=== PATIENT | female | born 1995 | race American Indian/Alaskan Native ===

== ENCOUNTER 2017-05-05 09:47 | Emergency (ER) | payer SELFPAY ==
--- NOTE | 2017-05-05 10:02 | Emergency Department Report ---
Chief Complaint: Abdominal Pain Stated Complaint: UNK WKS PREG/ABD PAIN Time Seen by Provider: 05/05/17 09:59 - HPI History of Present Illness: PT states she had a positive home test 3 weeks ago. pt reports lower abd pain since yesterday - ROS Review of Systems: + abd pain - bleeding - Exam Vital Signs: Vital Signs 05/05/17 09:55 Temperature 99.1 F Pulse Rate 81 Respiratory 20 Rate Blood Pressure 136/76 O2 Sat by Pulse 100 Oximetry MSE screening note: Focused history and physical exam performed. Due to findings the following was ordered: labs, us ED Disposition for MSE Condition: Stable Instructions: Abdominal Pain (ED)
[2017-05-05 10:26] LABS: Basophils % (Auto) 0.5 % (0.0-1.8); Eosinophils % (Auto) 5.8 % (0.0-4.3); Hematocrit 39.4 % (30.3-42.9); Hemoglobin 12.7 gm/dl (10.1-14.3); Mean Corpuscular HGB Conc 32 % (30-34); Mean Corpuscular Hemoglobin 29 pg (28-32); Mean Corpuscular Volume 91 fl (79-97); Platelet Count 246 K/mm3 (140-440); Red Blood Count 4.35 M/mm3 (3.65-5.03); Red Cell Distribution Width 16.7 % (13.2-15.2)
[2017-05-05 10:39] LABS: Alanine Aminotransferase 24 units/L (7-56); Albumin/Globulin Ratio 1.2 %; Alkaline Phosphatase 41 units/L (35-129); Anion Gap 19 mmol/L; Blood Urea Nitrogen 9 mg/dL (7-17); Calcium 8.7 mg/dL (8.4-10.2); Carbon Dioxide 21 mmol/L (22-30); Chloride 101.9 mmol/L (98-107); Glucose 109 mg/dL (65-100); Potassium 3.6 mmol/L (3.6-5.0); Sodium 138 mmol/L (137-145); Total Protein 7.4 g/dL (6.3-8.2)
[2017-05-05 10:43] LABS: Bacteria,Urine 1+ /HPF (Negative); Bilirubin,Urine NEG (Negative); Blood,Urine SM (Negative); Ketones,Urine NEG (Negative); Leukocyte Esterase,Urine TR (Negative); Mucus,Urine 3+ /HPF; Nitrite,Urine NEG (Negative); Protein,Urine <15 mg/dL mg/dL (Negative); Urobilinogen,Urine < 2.0 mg/dL (<2.0)
--- NOTE | 2017-05-05 11:26 | Ultrasound Report ---
ULTRASOUND OB LESS THAN 14 WEEKS FETUS ULTRASOUND OB TRANSVAGINAL HISTORY: Abdominal and pelvic pain. Beta-hCG level is 696.2. FINDINGS: Transabdominal and transvaginal imaging was performed. The uterus measures 12 x 7 x 8 cm. No uterine mass is identified. The endometrial stripe measures 16 mm. There appears to be a small amount of endometrial fluid. No intrauterine gestational sac or heart tones could be demonstrated. The cervix is unremarkable. The right ovary measures 1.9 x 1.3 x 1.9 cm. No focal abnormality. The left ovary measures 2.2 x 2.1 x 2.5 cm. The left ovary contains a 2.1 cm cystic lesion which probably represents a corpus luteum cyst. IMPRESSION: No intrauterine is visualized at this time. See above. Probable corpus luteum cyst in the left ovary. Please note that an ectopic is not entirely excluded at this time. Followup is recommended.
[2017-05-05 13:41] VITALS: BP 122/70
--- NOTE | 2017-05-05 15:28 | Emergency Department Report ---
ED Abdominal Pain HPI - General Chief Complaint: Abdominal Pain Stated Complaint: UNK WKS PREG/ABD PAIN Time Seen by Provider: 05/05/17 09:59 Source: patient Mode of arrival: Ambulatory Limitations: No Limitations - History of Present Illness Initial Comments: 22-year-old female here with abdominal cramping. Patient's last miss her period was in early March. She presents today with some cramping but no vaginal bleeding. No fevers chills nausea vomiting. She otherwise appears well. MD Complaint: abdominal pain -: Gradual Location: suprapubic Radiation: none Migration to: no migration Severity: moderate Severity scale (0 -10): 0 Quality: fullness Consistency: intermittent Improves With: nothing Worsens With: nothing Associated Symptoms: denies: nausea, vomiting, chills, constipation, dysuria - Related Data LMP (females 10-50): Home Medications Medication Instructions Recorded Confirmed Last Taken No Known Home Medications [No 01/31/16 05/05/17 Unknown Reported Home Medications] Allergies Allergy/AdvReac Type Severity Reaction Status Date / Time No Known Allergies Allergy Verified 02/11/16 16:23 ED Review of Systems ROS: Stated complaint: UNK WKS PREG/ABD PAIN Other details as noted in HPI Comment: All other systems reviewed and negative Constitutional: denies: chills, fever Eyes: denies: eye pain, eye discharge, vision change ENT: denies: ear pain, throat pain Respiratory: denies: cough, shortness of breath, wheezing Cardiovascular: denies: chest pain, palpitations Endocrine: no symptoms reported Gastrointestinal: denies: abdominal pain, nausea, diarrhea Genitourinary: denies: urgency, dysuria, discharge Musculoskeletal: denies: back pain, joint swelling, arthralgia Skin: denies: rash, lesions Neurological: denies: headache, weakness, paresthesias Psychiatric: denies: anxiety, depression Hematological/Lymphatic: denies: easy bleeding, easy bruising ED Past Medical Hx - Past Medical History Previous Medical History?: Yes Hx Hypertension: No Hx Diabetes: No Hx Deep Vein Thrombosis: No Hx Renal Disease: No Hx Sickle Cell Disease: No Hx Seizures: No Hx Asthma: Yes (last attack 10yrs ago) Hx HIV: No Additional medical history: Vaginal dleivery x 3 - Surgical History Past Surgical History?: No - Family History Family history: no significant - Social History Smoking Status: Never Smoker - Medications Home Medications: Home Medications Medication Instructions Recorded Confirmed Last Taken Type No Known Home Medications [No 01/31/16 05/05/17 Unknown History Reported Home Medications] ED Physical Exam - General Limitations: No Limitations General appearance: alert, in no apparent distress, obese - Head Head exam: Present: atraumatic, normocephalic - Eye Eye exam: Present: normal appearance - ENT ENT exam: Present: mucous membranes moist - Neck Neck exam: Present: normal inspection - Respiratory Respiratory exam: Present: normal lung sounds bilaterally. Absent: respiratory distress, wheezes, rales - Cardiovascular Cardiovascular Exam: Present: regular rate, normal rhythm, normal heart sounds. Absent: systolic murmur, diastolic murmur, rubs, gallop - GI/Abdominal GI/Abdominal exam: Present: soft, normal bowel sounds - Extremities Exam Extremities exam: Present: normal inspection - Back Exam Back exam: Present: normal inspection - Neurological Exam Neurological exam: Present: alert, oriented X3 - Psychiatric Psychiatric exam: Present: normal affect, normal mood - Skin Skin exam: Present: warm, dry, intact, normal color. Absent: rash ED Course Vital Signs 05/05/17 05/05/17 09:55 13:40 Temperature 99.1 F 98.7 F Pulse Rate 81 78 Respiratory 20 18 Rate Blood Pressure 136/76 Blood Pressure 122/70 [Right] O2 Sat by Pulse 100 98 Oximetry ED Medical Decision Making - Lab Data Result diagrams: 05/05/17 10:02 05/05/17 10:02 Laboratory Results - last 24 hr 05/05/17 05/05/17 05/05/17 10:02 10:02 10:02 WBC 6.0 RBC 4.35 Hgb 12.7 Hct 39.4 MCV 91 MCH 29 MCHC 32 RDW 16.7 H Plt Count 246 Lymph % (Auto) 33.2 [place] % (Auto) 7.7 H Eos % (Auto) 5.8 H Baso % (Auto) 0.5 Lymph # 2.0 [place] # 0.5 Eos # 0.3 Baso # 0.0 Seg Neutrophils % 52.8 Seg Neutrophils # 3.2 Sodium 138 Potassium 3.6 Chloride 101.9 Carbon Dioxide 21 L Anion Gap 19 BUN 9 Creatinine 0.5 L Estimated GFR > 60 BUN/Creatinine Ratio 18.00 Glucose 109 H Calcium 8.7 Total Bilirubin 0.50 AST 23 ALT 24 Alkaline Phosphatase 41 Total Protein 7.4 Albumin 4.0 Albumin/Globulin Ratio 1.2 HCG, Quant 696.2 H Urine Color Urine Turbidity Urine pH Ur Specific [place] Urine Protein Urine Glucose (UA) Urine Ketones Urine Blood Urine Nitrite Urine Bilirubin Urine Urobilinogen Ur Leukocyte Esterase Urine WBC (Auto) Urine RBC (Auto) U Epithel Cells (Auto) Urine Bacteria (Auto) Urine Mucus Blood Type 05/05/17 05/05/17 10:02 10:14 WBC RBC Hgb Hct MCV MCH MCHC RDW Plt Count Lymph % (Auto) [place] % (Auto) Eos % (Auto) Baso % (Auto) Lymph # [place] # Eos # Baso # Seg Neutrophils % Seg Neutrophils # Sodium Potassium Chloride Carbon Dioxide Anion Gap BUN Creatinine Estimated GFR BUN/Creatinine Ratio Glucose Calcium Total Bilirubin AST ALT Alkaline Phosphatase Total Protein Albumin Albumin/Globulin Ratio HCG, Quant Urine Color Yellow Urine Turbidity Clear Urine pH 5.0 Ur Specific [place] 1.029 Urine Protein <15 mg/dl Urine Glucose (UA) Neg Urine Ketones Neg Urine Blood Sm Urine Nitrite Neg Urine Bilirubin Neg Urine Urobilinogen < 2.0 Ur Leukocyte Esterase Tr Urine WBC (Auto) 2.0 Urine RBC (Auto) 4.0 U Epithel Cells (Auto) 5.0 Urine Bacteria (Auto) 1+ Urine Mucus 3+ Blood Type AB POSITIVE - Medical Decision Making 22-year-old female here with abdominal cramping. She is . She's never had an ectopic . Her beta hCG is 696. Her ultrasound does not show an intrauterine . She will need follow-up for repeat ultrasound or repeat beta-hCG in 48 hours. I discussed this with the patient and she is comfortable with plan she is to return if she has worsening pain or sudden onset of vaginal bleeding. Portions of this chart were dictated with dictation software. There may be dictation errors contained within this note. Critical care attestation.: If time is entered above; I have spent that time in minutes in the direct care of this critically ill patient, excluding procedure time. ED Disposition Clinical Impression: Abdominal pain affecting Disposition: DC-01 TO HOME OR SELFCARE Is pt being admited?: No Condition: Stable Instructions: Abdominal Pain (ED), (ED), Ectopic (ED) Additional Instructions: Please return to the emergency department for repeat ultrasound and repeat beta hCG in 48 hours. If you would prefern he may follow directly with a public relations sales marketing. Referrals: PRIMARY CARE, [Primary Care Provider] - 3-5 Days DAGO WRIGHT MD [Staff Physician] - [facility] (Follow up in 48 hours)
== END 2017-05-05 15:35 | disposition home or self-care (01) ==
LOC: ED 09:47
DX: O26.891 Other specified pregnancy related conditions, first trimester (principal); R10.9 Unspecified abdominal pain; Z3A.01 Less than 8 weeks gestation of pregnancy; J45.909 Unspecified asthma, uncomplicated
CPT/HCPCS: 36415; 76801; 76817; 80053; 81001; 84702; 85025; 86900; 86901

== ENCOUNTER 2017-06-16 17:04 | Emergency (ER) | payer SELFPAY ==
[2017-06-16 18:20] LABS: Basophils % (Auto) 0.2 % (0.0-1.8); Eosinophils % (Auto) 3.4 % (0.0-4.3); Hematocrit 37.4 % (30.3-42.9); Hemoglobin 12.6 gm/dl (10.1-14.3); Mean Corpuscular HGB Conc 34 % (30-34); Mean Corpuscular Hemoglobin 30 pg (28-32); Mean Corpuscular Volume 90 fl (79-97); Platelet Count 240 K/mm3 (140-440); Red Blood Count 4.18 M/mm3 (3.65-5.03); Red Cell Distribution Width 15.6 % (13.2-15.2)
[2017-06-16 18:55] LABS: Bilirubin,Urine NEG (Negative); Blood,Urine NEG (Negative); Ketones,Urine NEG (Negative); Leukocyte Esterase,Urine NEG (Negative); Mucus,Urine FEW /HPF; Nitrite,Urine NEG (Negative); Protein,Urine <15 mg/dL mg/dL (Negative); Urobilinogen,Urine < 2.0 mg/dL (<2.0); WBC,Urine < 1.0 /HPF (0.0-6.0)
[2017-06-16 18:58] LABS: Alanine Aminotransferase 15 units/L (7-56); Albumin/Globulin Ratio 1.2 %; Alkaline Phosphatase 35 units/L (35-129); Anion Gap 18 mmol/L; BUN/Creatinine Ratio 18; Blood Urea Nitrogen 9 mg/dL (7-17); Calcium 9.3 mg/dL (8.4-10.2); Carbon Dioxide 20 mmol/L (22-30); Chloride 100.2 mmol/L (98-107); Glucose 108 mg/dL (65-100); Lipase 23 units/L (13-60); Potassium 3.6 mmol/L (3.6-5.0); Sodium 135 mmol/L (137-145); Total Protein 7.3 g/dL (6.3-8.2)
[2017-06-16] MEDS ORDERED: TYLENOL PO ONE (20:26)
[2017-06-16] MEDS ORDERED: TYLENOL ONE (20:27)
--- NOTE | 2017-06-16 21:31 | Ultrasound Report ---
FINAL REPORT PROCEDURE: US OB \T\lt; = 14 WEEKS FETUS TECHNIQUE: Real-time transabdominal sonography of the uterus, placenta, amniotic fluid, adnexa, and fetus was performed with image documentation. Measurements were obtained to determine age/size. M-mode Doppler was used to document heartbeat. CPT 93063 HISTORY: ABD CRAMPING COMPARISON: No prior studies are available for comparison. FINDINGS: CRL: 36 mm, which corresponds to a gestational age of: 10 weeks, 3 days. Yolk Sac: Normal. Embryonic Cardiac Activity: 166 beats per minute Gestational Sac: 2 small crescentic hypoechoic areas are seen adjacent to the gestational sac, likely related to subchorionic hemorrhage. One is seen inferiorly which measures 1.1 x 1.7 x 2.2 centimeters. One is seen posteriorly which measures 1.7 x 0.5 x 1.0 centimeters Amniotic fluid: Normal. Cervix: Not well-visualized Right Ovary: Normal. Left Ovary: 2.3 centimeter complex cyst is present Estimated delivery date: 01/09/2018 IMPRESSION: Single live intrauterine gestation at approximately 10 weeks 3 days. EDC by US 01/09/2018 Two small areas of subchorionic hemorrhage are seen, as described above.
[2017-06-17] MEDS ORDERED: TYLENOL PO ONE (08:11)
--- NOTE | 2017-06-17 08:15 | Emergency Department Report ---
HPI - General Chief Complaint: Abdominal Pain Time Seen by Provider: 06/17/17 08:04 - HPI HPI: Room 26 The patient is a 22-year-old female presented with a chief complaint of abdominal pain. Patient states she is but has not yet seen an [employer]. Patient states for the past 3 days she's had intermittent suprapubic abdominal pain. Patient denies vaginal bleeding or dysuria. Patient describes pain as cramping and intermittent. Location: Suprapubic Duration: 3 days Quality: Cramping Severity: Moderate Modifying factors: [see above] Context: [see above] Mode of transportation: Unknown ED Past Medical Hx - Past Medical History Hx Asthma: Yes (last attack 10yrs ago) Additional medical history: Vaginal dleivery x 3 - Surgical History Past Surgical History?: No - Family History Family history: no significant - Social History Smoking Status: Current Some Day Smoker Substance Use Type: None (denies illicit drug use) - Medications Home Medications: Home Medications Medication Instructions Recorded Confirmed Last Taken Type No Known Home Medications [No 01/31/16 05/05/17 Unknown History Reported Home Medications] ED Review of Systems ROS: Stated complaint: ABD PAIN 15WKS Other details as noted in HPI Comment: All other systems reviewed and negative Constitutional: denies: chills, fever Eyes: denies: eye pain, eye discharge, vision change ENT: denies: ear pain, throat pain Cardiovascular: denies: chest pain, palpitations Endocrine: no symptoms reported Gastrointestinal: abdominal pain Genitourinary: denies: dysuria, abnormal menses Musculoskeletal: back pain Skin: denies: rash, lesions Neurological: denies: headache, weakness, paresthesias Psychiatric: denies: anxiety, depression Hematological/Lymphatic: denies: easy bleeding, easy bruising Physical Exam - Physical Exam Vital Signs: Vital Signs 06/16/17 06/16/17 06/17/17 17:28 20:30 08:00 Temperature 98.5 F Pulse Rate 93 H 87 Respiratory 18 18 16 Rate Blood Pressure 123/65 Blood Pressure 118/68 [Left] O2 Sat by Pulse 99 98 Oximetry Physical Exam: GENERAL: The patient is well-developed well-nourished female lying on stretcher not appearing to be in acute distress. [] HEENT: Normocephalic. Atraumatic. Extraocular motions are intact. Patient has moist mucous membranes. NECK: Supple. No meningitic signs are noted. There is no adenopathy noted. CHEST/LUNGS: Clear to auscultation. There is no respiratory distress noted. HEART/CARDIOVASCULAR: Regular. There is no tachycardia. There is no gallop rub or murmur. ABDOMEN: Abdomen is soft, with mild discomfort to palpation in the suprapubic and left lower quadrant. There is no tenderness to palpation in the right lower quadrant. There is no rebound or guarding. Patient has normal bowel sounds. There is no abdominal distention. SKIN: There is no rash. There is no edema. There is no diaphoresis. NEURO: The patient is awake, alert, and oriented. The patient is cooperative. The patient has normal speech MUSCULOSKELETAL: There is no evidence of acute injury. ED Course Vital Signs 06/16/17 06/16/17 06/17/17 17:28 20:30 08:00 Temperature 98.5 F Pulse Rate 93 H 87 Respiratory 18 18 16 Rate Blood Pressure 123/65 Blood Pressure 118/68 [Left] O2 Sat by Pulse 99 98 Oximetry ED Medical Decision Making - Lab Data Result diagrams: 06/16/17 17:40 06/16/17 17:40 Laboratory Tests 06/16/17 06/16/17 06/16/17 17:40 17:40 17:40 WBC 8.0 RBC 4.18 Hgb 12.6 Hct 37.4 MCV 90 MCH 30 MCHC 34 RDW 15.6 H Plt Count 240 Lymph % (Auto) 27.4 [place] % (Auto) 5.0 Eos % (Auto) 3.4 Baso % (Auto) 0.2 Lymph # 2.2 [place] # 0.4 Eos # 0.3 Baso # 0.0 Seg Neutrophils % 64.0 Seg Neutrophils # 5.1 Sodium 135 L Potassium 3.6 Chloride 100.2 Carbon Dioxide 20 L Anion Gap 18 BUN 9 Creatinine 0.5 L Estimated GFR > 60 BUN/Creatinine Ratio 18 Glucose 108 H Calcium 9.3 Total Bilirubin 0.20 AST 14 ALT 15 Alkaline Phosphatase 35 Total Protein 7.3 Albumin 4.0 Albumin/Globulin Ratio 1.2 Lipase 23 HCG, Qual Positive HCG, Quant Urine Color Urine Turbidity Urine pH Ur Specific [place] Urine Protein Urine Glucose (UA) Urine Ketones Urine Blood Urine Nitrite Urine Bilirubin Urine Urobilinogen Ur Leukocyte Esterase Urine WBC (Auto) Urine RBC (Auto) U Epithel Cells (Auto) Urine Mucus 06/16/17 06/16/17 17:40 18:06 WBC RBC Hgb Hct MCV MCH MCHC RDW Plt Count Lymph % (Auto) [place] % (Auto) Eos % (Auto) Baso % (Auto) Lymph # [place] # Eos # Baso # Seg Neutrophils % Seg Neutrophils # Sodium Potassium Chloride Carbon Dioxide Anion Gap BUN Creatinine Estimated GFR BUN/Creatinine Ratio Glucose Calcium Total Bilirubin AST ALT Alkaline Phosphatase Total Protein Albumin Albumin/Globulin Ratio Lipase HCG, Qual HCG, Quant [id number] H Urine Color Yellow Urine Turbidity Clear Urine pH 8.0 H Ur Specific [place] 1.025 Urine Protein <15 mg/dl Urine Glucose (UA) Neg Urine Ketones Neg Urine Blood Neg Urine Nitrite Neg Urine Bilirubin Neg Urine Urobilinogen < 2.0 Ur Leukocyte Esterase Neg Urine WBC (Auto) < 1.0 Urine RBC (Auto) 2.0 U Epithel Cells (Auto) 2.0 Urine Mucus Few - Radiology Data Radiology results: report reviewed (pelvic ultrasound), image reviewed (pelvic ultrasound) Pelvic ultrasound (read by radiologist)-single live intrauterine gestation at approximately 10 weeks 3 days. 2 small areas of subchorionic hemorrhage are seen - Differential Diagnosis threatened , ectopic , UTI Critical care attestation.: If time is entered above; I have spent that time in minutes in the direct care of this critically ill patient, excluding procedure time. ED Disposition Clinical Impression: Subchorionic hemorrhage in first trimester, Abdominal pain Disposition: TO HOME OR SELFCARE Is pt being admited?: No Does the pt Need Aspirin: No Condition: Stable Instructions: Abdominal Pain (ED) Additional Instructions: Return to the emergency department immediately should you develop worsening symptoms, fever, inability to tolerate food or liquid or any other concerns. Referrals: PRIMARY CARE, [Primary Care Provider] - 3-5 Days your, [employer] [Other] - [place] Time of Disposition: 08:16
[2017-06-17 11:21] VITALS: BP 118/68
== END 2017-06-17 08:33 | disposition home or self-care (01) ==
LOC: ED 17:04
DX: O46.91 Antepartum hemorrhage, unspecified, first trimester (principal); F17.210 Nicotine dependence, cigarettes, uncomplicated; Z3A.10 10 weeks gestation of pregnancy
CPT/HCPCS: 36415; 76801; 80053; 81001; 83690; 84702; 84703; 85025; 99284

== ENCOUNTER 2017-09-02 12:27 | Outpatient (CLI) | payer OTHER ==
[2017-09-02] MEDS ORDERED: LACTATED RINGERS 1,000 ML IV ONE (13:54)
[2017-09-02] MEDS ORDERED: BRETHINE SUB-Q ONE (13:54)
[2017-09-02 14:10] LABS: Bilirubin,Urine NEG (Negative); Blood,Urine SM (Negative); Ketones,Urine NEG (Negative); Leukocyte Esterase,Urine NEG (Negative); Mucus,Urine FEW /HPF; Nitrite,Urine NEG (Negative); Protein,Urine <15 mg/dL mg/dL (Negative); Urobilinogen,Urine < 2.0 mg/dL (<2.0)
[2017-09-02 15:03] VITALS: BP 138/75
[2017-09-02] MEDS ORDERED: TYLENOL PO ONE (15:04)
== END 2017-09-02 15:40 | disposition home or self-care (01) ==
LOC: TRG 12:27
PROVIDERS: ATTEND Obstetrics & Gynecology
DX: O47.02 False labor before 37 completed weeks of gestation, second trimester (principal); Z3A.23 23 weeks gestation of pregnancy; Z87.891 Personal history of nicotine dependence
CPT/HCPCS: 59025; 81001; 96360; 96372; J3105; J7120

== ENCOUNTER 2017-11-13 13:34 | Outpatient (CLI) | payer MEDICAID ==
[2017-11-13] MEDS ORDERED: LACTATED RINGERS 500 ML IV ONE (14:25)
[2017-11-13 14:54] LABS: Bilirubin,Urine NEG (Negative); Blood,Urine NEG (Negative); Color,Urine Yellow (Yellow); Mucus,Urine 1+ /HPF; Protein,Urine <15 mg/dL mg/dL (Negative); Urobilinogen,Urine < 2.0 mg/dL (<2.0)
[2017-11-13 14:56] LABS: Amphetamine Screen,Urine PRESUMPTIVE NEGATIVE; Benzodiazepines Screen,Urine PRESUMPTIVE NEGATIVE; Cannabinoid Screen,Urine PRESUMPTIVE NEGATIVE; Cocaine Screen,Urine PRESUMPTIVE NEGATIVE; Methadone Screen,Urine PRESUMPTIVE NEGATIVE; Opiate Screen,Urine PRESUMPTIVE NEGATIVE
[2017-11-13 15:07] VITALS: BP 129/71
== END 2017-11-13 16:00 | disposition home or self-care (01) ==
LOC: TRG 13:34
PROVIDERS: ATTEND Obstetrics & Gynecology
DX: O47.03 False labor before 37 completed weeks of gestation, third trimester (principal); Z79.899 Other long term (current) drug therapy; Z3A.36 36 weeks gestation of pregnancy
CPT/HCPCS: 59025; 80307; 81001

== ENCOUNTER 2017-12-20 23:02 | Outpatient (CLI) | payer MEDICAID ==
[2017-12-20 23:37] VITALS: BP 112/60
== END 2017-12-21 00:26 | disposition home or self-care (01) ==
LOC: TRG 23:02
PROVIDERS: ATTEND Obstetrics & Gynecology Gynecology
DX: O99.333 Smoking (tobacco) complicating pregnancy, third trimester (principal); F17.200 Nicotine dependence, unspecified, uncomplicated; O47.1 False labor at or after 37 completed weeks of gestation; Z3A.39 39 weeks gestation of pregnancy
CPT/HCPCS: 59025

== ENCOUNTER 2017-12-29 05:40 | Inpatient (IN) | payer MEDICAID ==
[2017-12-29] MEDS ORDERED: SUBLIMAZE ONE (06:02)
[2017-12-29] MEDS ORDERED: LACTATED RINGERS 1,000 ML ONE (06:03)
[2017-12-29] MEDS ORDERED: POLYCILLIN/NS 2 GM/100 ML 2 GM/100 ML BAG IV ONE ×2 (06:03→06:26)
[2017-12-29] MEDS ORDERED: SUBLIMAZE IV PRN (06:26)
[2017-12-29] MEDS ORDERED: BRETHINE SUB-Q PRN (06:26)
[2017-12-29] MEDS ORDERED: ePHEDrine SULFATE IV PRN ×2 (06:26→08:01)
[2017-12-29] MEDS ORDERED: XYLOCAINE 2% INFILTRATI ONE (06:26)
[2017-12-29] MEDS ORDERED: MINERAL OIL PO PRN (06:26)
[2017-12-29] MEDS ORDERED: ZOFRAN IV PRN ×2 (06:26→10:30)
--- NOTE | 2017-12-29 06:33 | History and Physical Report ---
History of Present Illness Date of examination: 12/29/17 Date of admission: 12/29/17 05:47 Chief complaint: Labor at term, care at [facility] History of present illness: Patient arrived in labor, unknown to this practice. She reports care at [facility] - + GBS test Vaginal del 2012- term, 7#14 - denies complications Vag del 2015 - term, 8#15 - denies complications Vag del 2017 - term, 7#6 - denies complications reports medical hx Childhood Asthma denies surgical hx denies surgical hx reports hx +CT Past History Past Medical History: asthma Past Surgical History: no surgical history [employer] History: chlamydia - Obstetrical History Expected Date of Delivery: 12/25/17 Actual Gestation: 40 Week(s) 4 Day(s) : 6 Para: 3 Hx # Term Pregnancies: 3 Number of Pregnancies: 0 Spontaneous Abortions: 1 Induced : 1 Number of Living Children: 3 Medications and Allergies Allergies Allergy/AdvReac Type Severity Reaction Status Date / Time No Known Allergies Allergy Verified 12/29/17 06:12 Home Medications Medication Instructions Recorded Confirmed Last Taken Type Vit-Fe Fumar-FA [ 1 tab PO QDAY 09/02/17 12/20/17 2 Days Ago History Vitamin] ~12/18/17 Review of Systems All systems: negative - Physical Exam Breasts: Positive: normal Cardiovascular: Regular rate Lungs: Positive: Clear to auscultation, Normal air movement Abdomen: Positive: normal appearance, soft, normal bowel sounds Genitourinary (Female): Positive: normal external genitalia, normal perenium Vulva: both: normal Vagina: Positive: normal moisture Uterus: Positive: normal size, normal contour Anus/Rectum: Positive: normal perianal skin Extremities: Positive: normal - Obstetrical FHR: auscultation normal, category 1 Uterine Contraction Monitor Mode: External Cervical Dilatation: 6 Uterine Contraction Pattern: Regular Uterine Tone Measurement Phase: Contraction Uterine Contraction Intensity: Moderate Results All other labs normal. Assessment and Plan 22y/o @ 40+4 arrived in labor. She received care at the [facility] - records request in process. Patient states she is GBS +. Admission orders in EMR. Patient would like epidural, IVF open for bolus. Anticipate . Dr. Frausto aware. - Patient Problems (1) GBS (group B Streptococcus carrier), +RV culture, currently Current Visit: Yes Status: Acute (2) Active labor at term Current Visit: Yes Status: Acute (3) 40 weeks gestation of Current Visit: Yes Status: Acute
[2017-12-29] MEDS ORDERED: LACTATED RINGERS 1,000 ML IV SCH (07:00)
[2017-12-29 07:08] LABS: Hemoglobin 10.1 gm/dl (10.1-14.3); Mean Corpuscular HGB Conc 33 % (30-34); Mean Corpuscular Hemoglobin 27 pg (28-32); Mean Corpuscular Volume 83 fl (79-97); Platelet Count 230 K/mm3 (140-440); Red Blood Count 3.76 M/mm3 (3.65-5.03); Red Cell Distribution Width 17.9 % (13.2-15.2)
[2017-12-29] MEDS ORDERED: NARCAN 2 MG/2 ML IV PRN (08:01)
--- NOTE | 2017-12-29 08:01 | Anesthesia Consultation ---
Anesthesia Consult and Med Hx Date of service: 12/29/17 - Airway Anesthetic Teeth Evaluation: Good ROM Head & Neck: Adequate Mental/Hyoid Distance: Adequate Mallampati Class: Class II Intubation Access Assessment: Probably Good - Pre-Operative Health Status ASA Pre-Surgery Classification: ASA2 Proposed Anesthetic Plan: Epidural, Spinal - Pulmonary Hx Asthma: No - Cardiovascular System Hx Hypertension: No - Central Nervous System Hx Seizures: No Hx Psychiatric Problems: No - Endocrine Hx Renal Disease: No Hx Hypothyroidism: No Hx Hyperthyroidism: No - Hematic Hx Anemia: No Hx Sickle Cell Disease: No - Other Systems Hx Alcohol Use: Yes (OCCAISIONAL GLASS OF RED WINE)
[2017-12-29] MEDS ORDERED: fentaNYL-BUPIV 2 MCG/ML-0.125% 200 MCG/100 ML BAG EPIDURAL SCH (09:00)
[2017-12-29] MEDS: PITOCin/NS 20 UNIT/1000ML DRIP 20 UNITS/1,000 ML BAG IV SCH ×2 (09:12→10:28)
--- NOTE | 2017-12-29 09:34 | Procedure Note ---
OB Delivery Note - Delivery Date of Delivery: 12/29/17 Surgeon: RENE RAMIREZ Estimated blood loss: 300cc - Vaginal Delivery presentation: vertex Delivery position: OP Delivery induction: none Delivery augmentation: pitocin Delivery monitor: external FHT, external uterine Route of delivery: Delivery placenta: spontaneous Delivery cord: 3 umbilical vessels Episiotomy: none Delivery laceration: none Anesthesia: epidural Delivery comments: Delivery as above. No shoulder dystocia or nuchal cord present. No lacerations noted. was placed on maternal abdomen. EBL 300ml Mother and infant stable in LDR. - Infant A at 1 minute: 8 at 5 minutes: 9 Infant Gender: Female (6lbs 8oz)
[2017-12-29] MEDS ORDERED: SODIUM CHLORIDE FLUSH SYRINGE 10 ML IV PRN (10:00)
[2017-12-29] MEDS ORDERED: MOTRIN PO SCH (10:00)
[2017-12-29] MEDS ORDERED: AMPICILLIN/NS 1 GM/50 ML 1 GM/50 ML BAG IV SCH (10:27)
[2017-12-29] MEDS ORDERED: LANSINOH TP PRN (10:30)
[2017-12-29] MEDS ORDERED: PHENERGAN PR PRN (10:30)
[2017-12-29] MEDS ORDERED: TUCKS PAD TP PRN (10:30)
[2017-12-29] MEDS ORDERED: BENADRYL PO PRN (10:30)
[2017-12-29] MEDS ORDERED: PHENERGAN PO PRN (10:30)
[2017-12-29] MEDS ORDERED: TORADOL IV NR (10:30)
[2017-12-29] MEDS ORDERED: SUBLIMAZE IV ONE (12:42)
[2017-12-29] MEDS ORDERED: SUBLIMAZE IV NR (13:20)
[2017-12-29] MEDS: MOTRIN PO SCH (16:00)
[2017-12-29 21:43] LABS: Hematocrit 26.7 % (30.3-42.9); Hemoglobin 8.6 gm/dl (10.1-14.3)
[2017-12-29] MEDS ORDERED: DULCOLAX PR PRN (22:00)
[2017-12-29] MEDS ORDERED: MILK OF MAGNESIA PO PRN (22:00)
[2017-12-29] MEDS ORDERED: NORCO 5/325 PO ONE (22:02)
[2017-12-30] MEDS ORDERED: METHERGINE IM ONE (00:25)
--- NOTE | 2017-12-30 00:28 | Event Note ---
Date: 12/30/17 Called by nursing staff pt c/o bleeding. Order given for methergine IM times one dose and po tp start there after. Orders placed in the EMR.
[2017-12-30] MEDS: METHERGINE PO SCH ×3 (06:12→22:45)
[2017-12-30] MEDS: MOTRIN PO SCH ×3 (06:15→19:08)
--- NOTE | 2017-12-30 06:22 | Progress Note ---
Assessment and Plan Pt A&O X 3 VSS FF below umb Lochia is small with several clots passed on pad. RN present giving Methergine during my rounds. H&H 05/03 drop r/t blood loss from delivery Pt states she is not symptomatic with ambulating. "I just feel tired." Stable s/p vag delivery P: continue pathway Complete PO Methergine D/C tomorrow if stable. Subjective - Subjective Date of service: 12/30/17 (pt states she still has some clots passing ) Principal diagnosis: 12-29-17; Day # 1 Patient reports: appetite normal, voiding normally, pain well controlled, ambulating normally : doing well Objective - Vital Signs Latest vital signs: Vital Signs Temp Pulse Resp BP BP Pulse Ox 12/30/17 06:15 18 12/30/17 01:11 98.1 F 81 20 109/61 98 12/29/17 22:41 18 12/29/17 21:55 98.3 F 80 20 128/64 100 12/29/17 16:12 98.5 F 69 20 125/67 98 12/29/17 11:55 98.0 F 67 16 117/68 99 12/29/17 10:27 16 12/29/17 06:44 97.6 F 18 130/69 Intake and Output 12/29/17 12/29/17 12/30/17 14:59 22:59 06:59 Intake Total 158.333 360 Output Total 400 1000 Balance -241.667 -640 Intake: IV 158.333 PITOCin/NS 20 UNIT/1000ML 158.333 DRIP 20 units In 1,000 ml @ 125 mls/hr IV DIRECT DAISHA Rx#:[id number] Oral 360 Output: Urine 400 1000 Void 400 1000 Other: Total, Intake Amount 240 Total, Output Amount 400 400 Estimated Blood Loss 300 - Exam Breasts: Present: normal Cardiovascular: Present: Regular rate Lungs: Present: Normal air movement Abdomen: Present: normal appearance, soft, normal bowel sounds Uterus: Present: normal, fundal height below umbilicus Extremities: Present: normal Deep Tendon Reflex Grade: Normal +2 Incision: Present: normal, dry, intact - Labs Labs: Abnormal lab results 12/29/17 12/29/17 Range/Units 06:15 21:29 Hgb 8.6 L (10.1-14.3) gm/dl Hct 26.7 L (30.3-42.9) % MCH 27 L (28-32) pg RDW 17.9 H (13.2-15.2) %
--- NOTE | 2017-12-30 07:45 | Discharge Summary ---
Providers - Providers Date of Admission: 12/29/17 05:47 Date of discharge: 12/30/17 (pt agrees to d/c tomorrow) Attending physician: JED BROWN Primary care physician: JULES MARTÍNEZ Hospitalization Reason for admission: active labor Delivery: Episiotomy: none Laceration: none Incision: normal Other procedures: none complications: none Discharge diagnosis: IUP at term delivered [place] baby: female Hospital course: uncomplicated vaginal delivery Pt desires to f/u with our practice PP. VSS FF below umb Lochia small Doing well s/p vag delivery P: d/c tomorrow RTO 6 weeks for PP care Condition at discharge: Good Disposition: DC-01 TO HOME OR SELFCARE - Discharge Diagnoses (1) Spontaneous vaginal delivery Status: Acute Comment: RTO 6 weeks PP care Plan - Discharge Medications Prescriptions: Ibuprofen 800 mg PO Q6HR #30 tablet - Provider Discharge Summary Activity: routine, no sex for 6 weeks, no heavy lifting 4 weeks, no strenuous exercise Diet: routine Instructions: routine Additional instructions: [] Smoking cessation referral if applicable(refer to patient education folder for contact #) [] Refer to [facility]'s [facility] Booklet Call your doctor immediately for: * Fever > 100.5 * Heavy vaginal bleeding ( >1 pad per hour) * Severe persistent headache * Shortness of breath * Reddened, hot, painful area to leg or breast * Drainage or odor from incision. * Keep incision clean and dry at all times and follow doctor's instructions regarding bathing/showering - Follow up plan Follow up: JULES MARTÍNEZ MD [Primary Care Provider] - 7 Days NOEMY DUKES CNM [Advanced Practice Nurse] - 6 Weeks (Congratulations! Please call [phone] to schedule your visit 6 weeks. Call with concerns. [facility] [address] [facility] [address] [place] [id number])
[2017-12-30] MEDS: TYLENOL PO PRN ×2 (10:26→17:14)
[2017-12-30] MEDS: NORCO 5/325 PO PRN (19:06)
[2017-12-31] MEDS: MOTRIN PO SCH ×2 (03:11→05:33)
[2017-12-31] MEDS: METHERGINE PO SCH (05:33)
[2017-12-31] MEDS: NORCO 5/325 PO PRN (07:25)
[2017-12-31 11:17] VITALS: BP 95/52
== END 2017-12-31 10:30 | disposition home or self-care (01) | DRG 775 ==
LOC: TRG 05:40 → LD 05:47 → OB 12:18
PROVIDERS: ADMIT Obstetrics & Gynecology; ATTEND Obstetrics & Gynecology
PROC: 10E0XZZ Delivery of Products of Conception, External Approach (ICD-10-PCS; principal; 2017-12-29)
PROC: 00HU33Z Insertion of Infusion Device into Spinal Canal, Percutaneous Approach (ICD-10-PCS; 2017-12-29)
PROC: 3E0R3BZ Introduction of Anesthetic Agent into Spinal Canal, Percutaneous Approach (ICD-10-PCS; 2017-12-29)
DX: O99.824 Streptococcus B carrier state complicating childbirth (principal); O99.52 Diseases of the respiratory system complicating childbirth; J45.909 Unspecified asthma, uncomplicated; Z3A.40 40 weeks gestation of pregnancy; Z37.0 Single live birth
CPT/HCPCS: 36415; 85014; 85018; 85027; 86592; 86850; 86900; 86901; 99211; 99406; G0463; J0290; J1885; J2210; J2590; J3010; J7120

== ENCOUNTER 2019-07-05 09:00 | Outpatient (CLI) | payer MEDICAID ==
[2019-07-05 09:32] VITALS: BP 121/62
== END 2019-07-05 10:27 | disposition home or self-care (01) ==
LOC: TRG 09:00
PROVIDERS: ATTEND Obstetrics & Gynecology
DX: O47.9 False labor, unspecified (principal)
CPT/HCPCS: 59025

== ENCOUNTER 2022-04-12 18:42 | Emergency (ER) | payer MEDICAID ==
[2022-04-12 19:02] VITALS: BP 132/80
--- NOTE | 2022-04-12 20:14 | XRay Report ---
CHEST 2 VIEWS INDICATION / CLINICAL INFORMATION: CHEST PAIN. COMPARISON: None available. FINDINGS: SUPPORT DEVICES: None. HEART / MEDIASTINUM: No significant abnormality. LUNGS / PLEURA: No significant pulmonary or pleural abnormality. No pneumothorax. ADDITIONAL FINDINGS: No significant additional findings. IMPRESSION: 1. No acute findings. Signer Name: Bradley Wood MD Signed: 04/12/2022 8:10 PM Workstation Name: [id number]
--- NOTE | 2022-04-15 10:09 | Electrocardiograph Report ---
[facility] Test Date: 2022-04-12 Test Time: 19:02:37 Pat Name: MOISES ORTIZ Department: Room: Gender: F [employer]: TEJAS : 1995 Requested By: ED DOC Order Number: [id number] Reading MD: Chuy Zheng Measurements Intervals Hilger Rate: 90 P: 66 LA: 129 QRS: 69 QRSD: 84 T: 36 QT: 332 QTc: 406 Interpretive Statements Sinus rhythm No previous ECG available for comparison Electronically Signed On 04-15-2022 10:09:26 EDT by Chuy Zheng
== END 2022-04-13 10:13 | disposition left against medical advice (07) ==
LOC: ED 18:42
DX: R07.9 Chest pain, unspecified (principal); Z53.21 Procedure and treatment not carried out due to patient leaving prior to being seen by health care provider
CPT/HCPCS: 71046; 93005